=== PATIENT | female | born 1955 | race Caucasian/White ===

== ENCOUNTER 2017-02-16 23:58 | Emergency (ER) | payer OTHER ==
[~2017-02-16] VITALS: Ht 170.2 cm; Wt 92.0 kg
[2017-02-17] MEDS ORDERED: MORPHINE SULFATE 4 MG/ML CPJ (NOT FOR IM USE) IV STA (01:11)
[2017-02-17] MEDS ORDERED: SODIUM CHLORIDE 0.9% 1,000 ML IV ONE (01:11)
[2017-02-17] MEDS ORDERED: ONDANSETRON HCL 4MG/2ML VIAL IV STA (01:11)
[2017-02-17 01:35] LABS: BASOPHILS % 0.2 % (0.0-2.0); EOSINOPHILS % 0.3 % (0.0-5.0); HEMATOCRIT. 45.1 % (36.0-48.0); HEMOGLOBIN. 14.5 g/dL (12.0-16.0); LYMPHOCYTES % 7.8 % (20.0-50.0); MEAN CORPUSCULAR HGB CONC 32.3 g/dL (31.0-37.0); MONOCYTES % 4.9 % (2.0-8.0); NEUTROPHILS % 86.8 % (40.0-76.0); PLATELET 149 x1000/uL (130-400); RED BLOOD CELL COUNT 5.01 mill/uL (4.2-5.4); RED CELL DISTRIBUTION WIDTH 13.4 % (11.6-14.6); WHITE BLOOD COUNT 10.3 x1000/uL (4.5-11.0)
[2017-02-17 01:41] LABS: INR 1.1; PROTHROMBIN TIME 11.4 sec
[2017-02-17 01:51] LABS: ALANINE AMINOTRANSFERASE 194 IU/L (13-61); ALBUMIN 3.3 g/dL (3.4-5.0); ANION GAP 14; CALCIUM 8.6 mg/dL (8.5-10.1); CARBON DIOXIDE 27 mEq/L (21-32); CHLORIDE 106 mEq/L (98-107); INDEX HEMOLYSI 1 (1-3); INDEX ICTERIC 1 (1-4); INDEX LIPEMIC 1 (1-3); LIPASE 154 IU/L (73-393); TROPONIN I < 0.02 ng/mL (0.00-0.04); UREA NITROGEN BLOOD 18 mg/dL (7-21); eGFR > 60 mL/min (>60)
[2017-02-17] MEDS ORDERED: MORPHINE SULFATE 4 MG/ML CPJ (NOT FOR IM USE) IV ONE (05:15)
[2017-02-17] MEDS ORDERED: CEFOXITIN SODIUM 1 G in DEXTROSE 5% WATER 50 ML IV SCH (05:30)
[2017-02-17] MEDS ORDERED: MORPHINE SULFATE 4 MG/ML CPJ (NOT FOR IM USE) IV PRN (08:45)
[2017-02-17 08:52] VITALS: BP 101/56
[2017-02-17] MEDS ORDERED: IOHEXOL-350 100 ML BOTTLE ONE (13:18)
[2017-02-17] MEDS ORDERED: SODIUM CHLORIDE 0.9% 10ML VIAL ONE (13:18)
== END 2017-02-17 09:00 | disposition short-term general hospital (02) ==
LOC: ER 02-17
DX: K81.9 Cholecystitis, unspecified (principal); R10.13 Epigastric pain; R11.2 Nausea with vomiting, unspecified; J44.9 Chronic obstructive pulmonary disease, unspecified; F17.210 Nicotine dependence, cigarettes, uncomplicated; Z85.820 Personal history of malignant melanoma of skin; Z88.8 Allergy status to other drugs, medicaments and biological substances
CPT/HCPCS: 36415; 71010; 71275; 74174; 80053; 83605; 83690; 84484; 85025; 85610; 93005; 96361; 96365; 96375; 96376; 99285; A4216; J0694; J2270; J2405; J7030; Q9967; Z7610; J7060